=== PATIENT | female | born 1995 | race Caucasian/White ===

== ENCOUNTER 2018-08-03 11:08 | Emergency (ER) | payer OTHER ==
[2018-08-03 11:22] VITALS: BP 121/78
--- NOTE | 2018-08-03 12:03 | EDPHY ---
H & P Smoking Status: Former smoker Time Seen by Provider: 08/03/18 11:29 HPI/ROS: CHIEF COMPLAINT: Right ankle injury HISTORY OF PRESENT ILLNESS: 23-year-old female presents to the emergency department with injury to the right ankle. Last night the patient was walking and thinks that she tripped injuring her right ankle. She had been drinking alcohol. Denies any other trauma or injury. Complains of isolated pain to the right ankle. Denies hitting her head or losing consciousness. ROS: Denies numbness or tingling in her toes, pain in the right calf or knee. ( Lelo Healy) Past Medical/Surgical History: Negative (Lelo Healy) Social History: [employer] student (Lelo Healy) Physical Exam: On examination, patient has obvious swelling to the lateral aspect of the right ankle overlying lateral malleolus. Reproducible tenderness with palpation over the lateral malleolus. Limited dorsiflexion secondary to pain. Nontender to palpate over the medial aspect of the ankle. No obvious ankle instability although this is difficult to test given her swelling and pain. Unable to test gait because of pain. Normal sensation to light touch with normal 2 point discrimination. Strong dorsalis pedis pulse on the dorsal aspect of the right foot. Achilles tendon is intact. Calf is nontender. Right knee is nontender. No abrasions or puncture wounds or signs of open injury or infection. (Lelo Healy) Constitutional: Initial Vital Signs Temperature (C) 36.8 C 08/03/18 11:20 Heart Rate 84 08/03/18 11:20 Respiratory Rate 16 08/03/18 11:20 Blood Pressure 121/78 H 08/03/18 11:20 O2 Sat (%) 97 08/03/18 11:20 O2 Delivery Mode Room Air Allergies/Adverse Reactions: No Known Allergies Allergy (Unverified 12/31/15 09:06) Home Medications: Medication Instructions Recorded Ibuprofen [Motrin (*)] 800 mg PO Q6 #15 tab 01/15/16 MDM/Departure - MDM Imaging: I viewed and interpreted images myself - MDM Procedures: Patient was placed in a Ford boot and given crutches and examined post application in good placement with normal PROCEDURAL NURSE. (Lelo Healy) ED Course/Re-evaluation: 23-year-old female presents emergency department with isolated right ankle injury. X-rays reveal no fractures. She was placed in a Ford boot and given crutches and will be nonweightbearing. (Lelo Healy) The patient was evaluated and managed by the physician assistant foreman. I have reviewed this chart and I agree with the findings and plan of care as documented , as indicated by my signature. I am the secondary supervising physician. ( Edel Gomez) - Depart Disposition: Home, Routine, Self-Care Clinical Impression: Right ankle sprain Qualifiers: Encounter type: initial encounter Involved ligament of ankle: unspecified ligament Qualified Code(s): S93.401A - Sprain of unspecified ligament of right ankle, initial encounter Condition: Good Instructions: Ankle Sprain (ED) Additional Instructions: Weightbear as tolerated. Ibuprofen 600 mg every 8 hr as needed for pain. Referrals: Al Conner MD [Medical Doctor] - 5-7 days, call for appt. (Orthopedic surgeon on-call)
== END 2018-08-03 12:28 | disposition home or self-care (01) ==
DX: S93.401A Sprain of unspecified ligament of right ankle, initial encounter (principal); Z87.891 Personal history of nicotine dependence; Y99.9 Unspecified external cause status
CPT/HCPCS: L4386